=== PATIENT | male | born 1955 | race Asian ===

== ENCOUNTER 2018-05-28 10:06 | Inpatient (IN) | payer MEDICAID ==
[~2018-05-28] VITALS: Ht 157.5 cm; Wt 72.6 kg
[2018-05-28 13:05] LABS: microscopic required? YES; urine erythrocyte 2+ (NEGATIVE)
[2018-05-28 14:32] LABS: BASOPHIL % 0.4 % (0-2); PLATELET COUNT 226 x10^3mcL (130-400); RED CELL DISTRIBUTION WIDTH 13.4 % (11.5-14.5)
[2018-05-28 14:48] LABS: CALCIUM 8.2 mg/dL (8.5-10.1); CARBON DIOXIDE 28.7 mmol/L (21-32); CHLORIDE SERUM 102 mmol/L (98-107); CREATININE SERUM 0.9 mg/dL (0.7-1.3); GFR1 > 60 mL/min; GLUCOSE SERUM 101 mg/dL (74-106); POTASSIUM SERUM 3.7 mmol/L (3.5-5.1); SODIUM SERUM 139 mmol/L (136-145)
[2018-05-28 14:54] LABS: ALBUMIN 3.8 g/dL (3.4-5.0); ALKALINE PHOSPHATASE 92 U/L (46-116); ALT/SGPT 21 U/L (16-63); TOTAL PROTEIN, SERUM 7.6 g/dL (6.4-8.2)
[2018-05-28 15:09] LABS: AST/SGOT 25 U/L (15-37)
[2018-05-28 15:35] LABS: AMPHETAMINE QUAL UR NONE DETECTED (See below)
[2018-05-28] MEDS ORDERED: ATENOLOL50 MG PO (16:49)
[2018-05-28] MEDS ORDERED: LIPITOR40 MG PO (16:49)
[2018-05-28] MEDS ORDERED: IBUPROFEN400 MG PO (16:50)
[2018-05-28 18:26] LABS: MAGNESIUM 2.1 mg/dL (1.8-2.4); PHOSPHOROUS 3.9 mg/dL (2.5-4.9)
[2018-05-28 18:30] LABS: T3 TOTAL 1.5 ng/mL
[2018-05-28 18:45] VITALS: BP 165/95
[2018-05-28 19:42] VITALS: BP 150/85
[2018-05-28 19:48] LABS: FREE T4 1.07 ng/dL (0.76-1.46); FREE THYROXINE INDEX 2.5 ug/dL (1.4-4.5); T4(THYROXINE) 7.5 ug/dL (4.7-13.3)
[2018-05-28 21:44] VITALS: BP 150/85
[2018-05-29 05:09] VITALS: BP 132/87
[2018-05-29 06:39] LABS: CALCIUM 8.1 mg/dL (8.5-10.1); CARBON DIOXIDE 28.8 mmol/L (21-32); CHLORIDE SERUM 104 mmol/L (98-107); CREATININE SERUM 0.9 mg/dL (0.7-1.3); GFR1 > 60 mL/min; GLUCOSE SERUM 77 mg/dL (74-106); MAGNESIUM 1.9 mg/dL (1.8-2.4); PHOSPHOROUS 4.1 mg/dL (2.5-4.9); POTASSIUM SERUM 4.1 mmol/L (3.5-5.1); SODIUM SERUM 142 mmol/L (136-145)
[2018-05-29 06:42] LABS: BASOPHIL % 0.5 % (0-2); PLATELET COUNT 224 x10^3mcL (130-400); RED CELL DISTRIBUTION WIDTH 13.5 % (11.5-14.5)
[2018-05-29 09:33] VITALS: BP 131/81
[2018-05-29] MEDS ORDERED: ECO81 PO (12:33)
[2018-05-29 14:08] VITALS: BP 138/85
[2018-05-29 15:55] VITALS: BP 138/85
[2018-05-29 17:49] VITALS: BP 128/75
[2018-05-29 19:46] VITALS: BP 128/75
== END 2018-05-29 20:12 | disposition home or self-care (01) | DRG 203 ==
LOC: ED 10:06 → DU 16:12
PROVIDERS: Emergency Medicine; Internal Medicine
DX: M94.0 Chondrocostal junction syndrome [Tietze] (principal); E78.5 Hyperlipidemia, unspecified; R31.9 Hematuria, unspecified; M54.16 Radiculopathy, lumbar region; M54.18 Radiculopathy, sacral and sacrococcygeal region; I10 Essential (primary) hypertension; N40.0 Benign prostatic hyperplasia without lower urinary tract symptoms; Z87.891 Personal history of nicotine dependence
CPT/HCPCS: 83880; 84439; 85378; J1885; J7030; Q0092